=== PATIENT | male | born 1970 | race Caucasian/White ===

== ENCOUNTER 2020-07-25 07:29 | Outpatient (RCR) | payer BC, SELFPAY ==
--- NOTE | 2020-07-25 15:31 | MHC.OT.DC ---
[address] [phone] F: [phone] Occupational Therapy Discharge Note Provider: Beatrice Mcgee NP Diagnosis: Left Cubital Tunnel Syndrome Date of Surgery: Date of Evaluation: 07/11/20 Date of Discharge: 07/25/20 Treatments to Date: 3 Cancellations to Date: 1 No Shows to Date: 0 Discharge Status: Independent with HEP Patient Elected to Stop Discharge Summary: Cl presents to OT w/ left D4-D5 numbness and tingling, likely due to ulnar nerve compression at cubital tunnel. He has been educated on joint protection and activity modification. He has good follow through w/ home exercise program and ulnar nerve glides. He continues to have sensory deficits, but will be able to continue home program, limited with office visits due to high copay and location from home and work. He would benefit from [employer] Cubital Comfort Brace, insurance may cover with a provider order, thank you. Please Sign and return to therapist, thank you for your referral.
== END 2020-08-04 10:30 | disposition other institution (70) ==
LOC: HO.OT 07:29
PROVIDERS: PCP Hospitalist; Visit Provider Hospitalist
DX: G56.22 Lesion of ulnar nerve, left upper limb (principal)
CPT/HCPCS: 97035; 97110

== ENCOUNTER 2020-09-05 09:22 | Outpatient (REF) | payer BC, SELFPAY | END 2020-09-05 09:23 | disposition home or self-care (01) | LOC: HO.WFDLDS 09:22 | PROVIDERS: Visit Provider Internal Medicine | DX: Z20.828 Contact with and (suspected) exposure to other viral communicable diseases (principal) | CPT/HCPCS: C9803; U0003 ==

== ENCOUNTER → 2020-09-19 08:54 | Outpatient (BNVA) | payer BC, SELFPAY | PROVIDERS: Visit Provider Physician Assistant | DX: Z76.89 Persons encountering health services in other specified circumstances (principal) ==

== ENCOUNTER 2020-11-16 07:26 | Day surgery (SDC) | payer BC, SELFPAY ==
[2020-11-10 14:28] VITALS: BMI 32.1
--- NOTE | 2020-11-15 09:16 | P.CONAN_ITS ---
Documented by User: Iman He 11/15/20 09:17 HPI - Anesthesia Eval Consult details Narrative: 50yo M for Colonoscopy Uncontrolled htn. PCP recently adjusted meds. [facility] Past Medical History Medical History (Updated 11/16/20 @ 08:35 by Evette Ornelas) Allergic rhinitis HTN (hypertension) Family History Family History Father No problems noted. Mother No problems noted. Other Adopted Surgical History Surgical History History of skin graft Social History Social History Household Members: Spouse and Children Are you a primary career technical counselor to a significant other at home: No Do you presently have visiting nurse or other home services: No Alcohol intake: current Smoking Status: Current every day smoker Packs Per Day: 0.75 Cigarettes Per Day: 15.0 Years Smoked: 35 Smoked in Last 30 Days: Yes Patient Interested in Nicotine Replacement: No Patient Given Instructions on How to Stop Smoking: Yes Date Education Initiated: 11/10/20 Use of substances other than those prescribed or required for medical reasons: No Have you been hit, kicked, punched, or otherwise hurt by someone within the past year? If so, by whom?: No Advance Directives: Yes Advance Directives Information Provided: No Advance Directives on File: Yes Advance Directives Date on File: 07/25/20 Recently lost weight without trying: No Current occupational status: employed Meds Allergies Allergy/AdvReac Type Severity Reaction Status Date / Time Seasonal allergies Allergy Unknown sneezing, Uncoded 11/10/20 14:16 watery eyes Exam Exam Date and Time: November 15, 2020 0916 Height,Weight and Vital Signs: Height 5 ft 7 in Weight 92.986 kg Assessment and Plan Assessment Anesthesia Assessment: Chart Reviewed Documented by User: Evette Ornelas 11/16/20 08:36 [facility] Past Medical History Medical History (Updated 11/16/20 @ 08:35 by Evette Ornelas) Allergic rhinitis HTN (hypertension) Family History Family History Father No problems noted. Mother No problems noted. Other Adopted Surgical History Surgical History History of skin graft Social History Social History Household Members: Spouse and Children Are you a primary career technical counselor to a significant other at home: No Do you presently have visiting nurse or other home services: No Alcohol intake: current Smoking Status: Current every day smoker Packs Per Day: 0.75 Cigarettes Per Day: 15.0 Years Smoked: 35 Smoked in Last 30 Days: Yes Patient Interested in Nicotine Replacement: No Patient Given Instructions on How to Stop Smoking: Yes Date Education Initiated: 11/10/20 Use of substances other than those prescribed or required for medical reasons: No Have you been hit, kicked, punched, or otherwise hurt by someone within the past year? If so, by whom?: No Advance Directives: Yes Advance Directives Information Provided: No Advance Directives on File: Yes Advance Directives Date on File: 07/25/20 Recently lost weight without trying: No Current occupational status: employed Meds Allergies Allergy/AdvReac Type Severity Reaction Status Date / Time Seasonal allergies Allergy Unknown sneezing, Uncoded 11/10/20 14:16 watery eyes Exam Airway Mallampati Class: IV (Poor mouth opening. Pt states jaw issues) TM Dist: >3cm Neck ROM: Full Heart: RRR Lungs: CTA Assessment and Plan Assessment Anesthesia Assessment: Anesthesia Plan Discussed and Chart Reviewed Final Anesthetic Review NPO: Yes ASA Class: II Final Preanesthetic Review: Meds/Allgs Chart Reviewed, Consent Obtained/Reviewed and Anes Risks/Benef Reviewed Patient Risk: Intermediate Procedure Risk: Low Anesthetic Plan Anesthetic Plan: MAC: Disposition: Standard PACU
[2020-11-16 08:12] VITALS: BP 190/107; PULSE 98; RESP 18; TEMP 36.5; O2SAT 99
--- NOTE | 2020-11-16 08:24 | MHC.SHP ---
Pre-Procedural Eval Section B Chief Complaint: Screening Relevant Family History (Specify if Yes): No Relevant Social History: Tobacco Use Present Medications: see Short Stay Collaborative assessment Medical History: Significant History (HTN) History of Previous Operations: Relevant previous surgery/procedure and date(s) (History of skin graft) Allergies: Allergies Allergy/AdvReac Type Severity Reaction Status Date / Time Seasonal allergies Allergy Unknown sneezing, Uncoded 11/10/20 14:16 watery eyes Review of Systems Sugical H&P ROS: Negative: Constitution, Cardiovascular, Respiratory, Neurological, Psychiatric, Hem-Onc, Allergic/Immunologic, Gastrointestinal, Genitourinary, Musculoskeletal, Integumentary, Endocrine and Eyes/Ears/Nose/Throat Exam Surgical H&P Exam: Normal: HEENT, Normal: Heart, Normal: Lungs, Normal: Extremities, Normal: Abdomen, Normal: Skin and Normal: Neurological Plan Diagnosis/Plan: Unchanged I have reviewed the history and physical and performed a pertinent physical examination on my patient. No changes have occurred unless specified.
--- NOTE | 2020-11-16 08:24 | PM.OP ---
Brief Operative Note Date of Service: 11/16/20 Pre-op diagnosis: colon screening Post-op diagnosis: same Procedure: see op note Surgeon: Bishnu Aponte MD Anesthesia: MAC Estimated blood loss (mL): 0 Condition: stable Disposition: PACU
--- NOTE | 2020-11-16 08:25 | P.OP_ITS ---
Operative Note Operative Note Date of Service: 11/16/20 Narrative: Operative Information Procedure Description: Colonoscopy COLONOSCOPY Instrument: Olympus variable stiffness pediatric scope 190L Colonoscopy Monitoring: Vital signs and clinical assessment, continuous EKG monitoring, Pulse oximetry, Carbon Dioxide monitoring and blood pressure monitoring were done throughout the procedure. Colon withdrawal time was 10 minutes. Procedure: The patient was placed in the left lateral decubitis position and pre-procedure medications were administered. After a digital rectal examination of the ano-rectum, the video colonoscope was inserted into the rectum and advanced through the colon to the cecum/TI. The colonoscope was slowly withdrawn in a retrograde panoramic fashion and the colon mucosa was carefully examined including a retroflexed view of the rectum. Findings and interventions are described below. Procedure Difficulty:EASY Findings: Terminal Ileum-normal Cecum:normal Ascending Colon: 4-5 mm sessile polyp removed with forceps Transverse Colon -normal Descending Colon:normal Sigmoid Colon: small mouthed diverticulosis of sigmoid Rectum: Retroflexion with small internal hemorrhoids, grade I Anorectum - normal Colon preparation: Conger Bowel Preparation Scale Right colon; 3 Transverse colon: 3 Left colon; 3 (0 = Unprepared colon segment with mucosa not seen due to solid stool that cannot be cleared. 1 = Portion of mucosa of the colon segment seen, but other areas of the colon segment not well seen due to staining, residual stool and/or opaque liquid. 2 = Minor amount of residual staining, small fragments of stool and/or opaque liquid, but mucosa of colon segment seen well. 3 = Entire mucosa of colon segment seen well with no residual staining, small fragments of stool or opaque liquid) Impression and Post Procedure Diagnosis: polyp internal hemorrhoids diverticular disease Plan: High fiber diet leaflet Avoid straining at stool, epsom salts and sitz bath, anusol supps or cream Repeat Colonoscopy in 5-7 years if adenoma or 10 yrs if hyperplastic polyp or earlier if clinically indicated Above findings were reviewed with the patient and relevant handouts were provided if indicated.
[2020-11-16 08:37] VITALS: BP 138/92; PULSE 93; RESP 18; O2SAT 95
[2020-11-16 09:10] VITALS: BP 103/72; PULSE 84; RESP 14; TEMP 36.1; O2SAT 98
[2020-11-16 09:25] VITALS: BP 142/92; PULSE 89; RESP 16; TEMP 36.1; O2SAT 97
== END 2020-11-16 09:36 | disposition home or self-care (01) ==
PROVIDERS: PCP Hospitalist; Visit Provider Internal Medicine Gastroenterology
PROC: 0DJD8ZZ Inspection of Lower Intestinal Tract, Via Natural or Artificial Opening Endoscopic (ICD-10-PCS; CPT 45378; principal; 2020-11-16 08:30)
DX: Z12.11 Encounter for screening for malignant neoplasm of colon (principal); D12.2 Benign neoplasm of ascending colon; K57.30 Diverticulosis of large intestine without perforation or abscess without bleeding; K64.0 First degree hemorrhoids; I10 Essential (primary) hypertension; J30.9 Allergic rhinitis, unspecified; F17.210 Nicotine dependence, cigarettes, uncomplicated; Z79.899 Other long term (current) drug therapy
CPT/HCPCS: 45380; 88305; J2250

== ENCOUNTER → 2020-12-07 10:33 | Outpatient (BNVA) | payer BC, SELFPAY | PROVIDERS: PCP Hospitalist; Visit Provider Physician Assistant ==

== ENCOUNTER 2021-03-28 10:23 | Outpatient (REF) | payer BC, SELFPAY ==
[2021-03-28 11:34] LABS: MANUAL DIFF FLAG NO
[2021-03-28 12:00] LABS: Basophils Absolute Auto 0.1 X10*3/uL (0.0-0.2); Basophils Percent Auto 1.1 % (0-2); Eosinophils Absolute Auto 0.1 X10*3/uL (0.0-0.4); Eosinophils Percent Auto 1.3 % (0-4); Hematocrit 49.8 % (42-52); Hemoglobin 17.5 g/dl (14.0-18.0); Imm Gran Abs Auto 0.03 X10*3/uL (0.00-0.03); Imm Gran Pct Auto 0.4 % (0.0-0.4); Lymphocytes Absolute Auto 2.4 X10*3/uL (1.2-4.9); Lymphocytes Percent Auto 28.1 % (20-40); Mean Corpuscular HGB Conc 35.1 g/dl (31.0-36.0); Mean Corpuscular Hemoglobin 35.1 pg (27.0-33.0); Mean Corpuscular Volume 99.8 fL (80-98); Mean Platelet Volume 9.1 fL (9.4-12.4); Monocytes Absolute Auto 0.9 X10*3/uL (0.1-1.2); Monocytes Percent Auto 10.9 % (2-11); Neutrophils Percent Auto 58.2 % (45-73); Platelet Count 230 X10*3/uL (160-400); Red Blood Count 4.99 X10*6/uL (4.60-5.80); White Blood Count 8.6 X10*3/uL (4.8-10.8)
[2021-03-28 12:27] LABS: TSH reflex Free T4 1.03 uIU/mL (0.32-4.0)
[2021-03-28 12:44] LABS: Carbon Dioxide 26 mmol/L (22-29); Chloride 102 mmol/L (96-108); Potassium 5.1 mmol/L (3.3-5.1); Sodium 137 mmol/L (135-145)
[2021-03-28 12:45] LABS: Anion Gap 14 (12-20); Blood Urea Nitrogen 10 mg/dL (9-16); Calcium 9.5 mg/dL (8.4-10.2); Estimated Glomerular Filt Rate > 60; Glucose Random 112 mg/dL (60-115)
[2021-03-28 13:11] LABS: Erythrocyte Sedimentation Rate 10 MM/HR (0-15)
[2021-03-30 18:02] LABS: CRP High Sensitivity 7.1 mg/L
== END 2021-03-28 10:24 | disposition home or self-care (01) ==
LOC: HO.WFDLDS 10:23
PROVIDERS: Visit Provider Family Medicine
DX: Z00.00 Encounter for general adult medical examination without abnormal findings (principal); M25.50 Pain in unspecified joint
CPT/HCPCS: 36415; 80048; 84443; 85025; 85652; 86141

== ENCOUNTER 2021-04-18 07:12 | Outpatient (REF) | payer BC, SELFPAY ==
[2021-04-18 11:36] LABS: MANUAL DIFF FLAG NO
[2021-04-18 11:59] LABS: Basophils Absolute Auto 0.1 X10*3/uL (0.0-0.2); Basophils Percent Auto 1.1 % (0-2); Eosinophils Absolute Auto 0.1 X10*3/uL (0.0-0.4); Eosinophils Percent Auto 1.8 % (0-4); Hematocrit 49.5 % (42-52); Hemoglobin 17.4 g/dl (14.0-18.0); Imm Gran Abs Auto 0.02 X10*3/uL (0.00-0.03); Imm Gran Pct Auto 0.3 % (0.0-0.4); Lymphocytes Absolute Auto 2.2 X10*3/uL (1.2-4.9); Lymphocytes Percent Auto 32.9 % (20-40); Mean Corpuscular HGB Conc 35.2 g/dl (31.0-36.0); Mean Corpuscular Hemoglobin 34.9 pg (27.0-33.0); Mean Corpuscular Volume 99.4 fL (80-98); Mean Platelet Volume 9.6 fL (9.4-12.4); Monocytes Percent Auto 14.7 % (2-11); Neutrophils Absolute Auto 3.3 X10*3/uL (2.0-8.3); Neutrophils Percent Auto 49.2 % (45-73); Platelet Count 224 X10*3/uL (160-400); Red Blood Count 4.98 X10*6/uL (4.60-5.80); Red Cell Distribution Width 12.9 % (11.0-16.0); White Blood Count 6.6 X10*3/uL (4.8-10.8)
[2021-04-18 12:46] LABS: TSH reflex Free T4 1.01 uIU/mL (0.32-4.0)
[2021-04-18 13:59] LABS: Erythrocyte Sedimentation Rate 10 MM/HR (0-15)
[2021-04-19 06:21] LABS: Lyme Abs Screen <0.90 index
[2021-04-19 08:27] LABS: HBS Num1 0.98 mIU/mL (0-7.99); HBc Num1 0.08 S/CO (0.00-0.79); HBsAGNum1 0.21 S/CO (0.00-0.99); Hepatitis B Core Antibody Nonreactive (Nonreactive); Hepatitis B Surface Antigen Negative (Negative); ~Hepatitis B Surface Antibody NONREACTIVE (Nonreactive)
[2021-04-19 08:42] LABS: ~HepC Num1 0.07 S/CO (0.00-0.79); ~Hepatitis C Antibody Nonreactive (Nonreactive)
[2021-04-19 23:02] LABS: CRP High Sensitivity 5.7 mg/L
[2021-04-20 11:47] LABS: HIV AB/AG Nonreactive (Nonreactive); HIV Num 1 0.06 S/CO (0.00-0.99)
== END 2021-04-18 07:13 | disposition home or self-care (01) ==
LOC: HO.WFDLDS 07:12
PROVIDERS: Visit Provider Family Medicine
DX: Z00.00 Encounter for general adult medical examination without abnormal findings (principal); Z11.4 Encounter for screening for human immunodeficiency virus [HIV]; Z11.59 Encounter for screening for other viral diseases; M25.50 Pain in unspecified joint
CPT/HCPCS: 36415; 84443; 85025; 85652; 86141; 86617; 86618; 86704; 86706; 86803; 87340; 87389

== ENCOUNTER → 2021-06-21 10:59 | Outpatient (BNVA) | payer BC, SELFPAY | PROVIDERS: PCP Family Medicine; Referring Provider Family Medicine; Visit Provider Internal Medicine ==

== ENCOUNTER 2025-01-05 09:54 | Outpatient (AMB) | payer BC, SELFPAY ==
--- NOTE | 2025-01-05 10:07 | A.OFFPC_ITS ---
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 Blood pressure today elevated at 160/90, 112p. Hx of CAD. He is on lisinopril 20mg, carvedilol 3.125mg b.i.d. Reports L hand pain, knee pain, neck pain. [facility] Medical History Allergic rhinitis Essential hypertension HTN (hypertension) Surgical History History of skin graft Family History Father No problems noted. Mother No problems noted. 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 2. Feeling down, depressed, or hopeless: not at all 3. Trouble falling or staying asleep, or sleeping too much: more than half the days 4. Feeling tired or having little energy: more than half the days 5. Poor appetite or overeating: not at all 6. Feeling bad about yourself - or that you are a failure or have let yourself or your family down: not at all 7. Trouble concentrating on things, such as reading the newspaper or watching television: not at all 8. Moving or speaking so slowly that other people could have noticed. Or the opposite - being so fidgety or restless that you have been moving around a lot more than usual: more than half the days 9. Thoughts that you would be better off or of hurting yourself in some way: not at all Source: Developed by Drs. Cedric Gray, Juana Najera, Louis Agarwal and colleagues, with an educational brittany from [employer] Thrive Questionnaire I am a: Patient What is your living situation today?: I have a steady place to live Within the past 12 months, did the food you bought not last and you didn't have the money to get more?: I choose not to answer this question Within the past 12 months, did you worry whether your food would run out before you got money to buy more?: Never true Do you have trouble paying for medicines?: No Do you have trouble getting transportation to medical appointments?: No Do you have trouble paying your heating and electricity bill?: No Do you have trouble taking care of your child, family member or friend?: No Do you have trouble with day-to-day activities such as bathing, preparing meals, shopping, managing finances, etc.?: Yes Are you currently unemployed and looking for a job?: No Are you interested in more education?: No Please select the resources that you would like help with: None Currently or been in a relationship where the following occur: No concerns reported THRIVE Score: 0 AUDIT C Alcohol Use Questionnaire (AUDIT-C) 1. How often do you have a drink containing alcohol?: 4 or more times a week 2. How many drinks containing alcohol do you have on a typical day when you are drinking?: 1 or 2 3. How often do you have six or more drinks on one occasion?: Never Total Score: 4 ROBERT-7 AMB Questionnaire ROBERT-7 Feeling nervous, anxious, or on edge: 0 = Not at all Not being able to stop or control worryin = Not at all Worrying too much about different things: 0 = Not at all Trouble relaxin = More than half the days Being so restless that it is hard to sit still: 0 = Not at all Becoming easily annoyed or irritable: 0 = Not at all Feeling afraid as if something awful might happen: 0 = Not at all Total ROBERT-7 score (0-4 normal; 5-9 mild; 10-14 moderate; 15-21 severe): 2 Source: Developed by Drs. Cedric Gray, Juana Najera, Louis Agarwal and colleagues, with an educational brittany from [employer] Review of Systems Const Denies chills, Denies fatigue, Denies fever(s), Denies headache(s) and Denies weakness ENT Denies dizziness, Denies headache(s) and Reports neck pain Card Denies dyspnea Resp Denies cough, Denies dyspnea, Denies wheezing and Denies other (shortness of breath) Musc Details: L hand pain Reports neck pain, Denies numbness and Denies tingling Neuro Denies dizziness, Denies headache(s), Denies numbness, Denies tingling and Denies weakness Psych Denies anxiety and Denies depression Endo Denies fatigue Aller/Immun Denies wheezing Physical exam (Primary Care) Vital Signs: Last Vital Signs Temp 97.5 F 01/05/25 10:09 Pulse 112 H 01/05/25 10:09 Resp 16 01/05/25 10:09 BP 160/90 H 01/05/25 10:09 Pulse Ox 98 01/05/25 10:09 Oxygen Delivery Method Room Air 01/05/25 10:09 BMI result Body Mass Index 33.7 Currently or been in a relationship where the following occur: No concerns reported Const General: well developed; No acute distress Nutritional Appearance: well nourished Orientation/consciousness: patient oriented x3 HENMT Head: Yes normocephalic and Yes atraumatic Eyes General: appearance normal, both eyes and all related structures Pupils: Equal, round and reactive pupils present EOM: EOMs intact bilaterally Resp Effort & Inspection: normal respiratory effort Neuro General: patient oriented x3 and gait normal Cranial nerves: Yes Equal, round and reactive pupils present Psych Affect: normal affect Coding Level of Care Code Est Pt Level 4 (19522) Diagnoses Essential hypertension I10 CAD (coronary artery disease) I25.10 Polyarthralgia M25.50 Assessment & Plan Assessment & Plan (1) Essential hypertension: Code(s): I10 - Essential (primary) hypertension Category: Medical Plan: Blood?pressure?is?too?high.??Goal?is?less?than?130/80?for?patient?with?coronary? artery?disease. Increasing?carvedilol?to?6.25?mg?b.i.d. Continuing?lisinopril Will?follow-up?again?in?1?month (2) CAD (coronary artery disease): Code(s): I25.10 - Atherosclerotic heart disease of [place] coronary artery without angina pectoris Category: Medical Plan: History?of?coronary?artery?disease.??He?is?not?currently?on?a?statin?medication. Will?send?script?for?atorvastatin?40?mg?daily. He?is?getting?his?lipids?drawn?this?Saturday.??He?will?hold?off?on?atorvastatin?un til?gets?his?lipids?drawn Patient?declines?EKG?today?but?will?get?this?done?at?his?next?visit (3) Polyarthralgia: Code(s): M25.50 - Pain in unspecified joint Category: Medical Plan: Bilateral?hand?pain,?left?worse?than?right?and?bilateral?knee?pain.? Will?refer?him?to?Rheumatology He?can?continue?meloxicam?for?now.??Hydrate?well Orders: Orders Lipid Panel Today Z00.00 - Encounter for general adult medical examination without abnormal findings TSH reflex Free T4 Today Z00.00 - Encounter for general adult medical exam ination without abnormal findings Comprehensive [place]. Panel Fast Today Z00.00 - Encounter for general adult medical examination without abnormal findings Complete Blood Count Auto Diff Today Z00.00 - Encounter for general adult medical examination without abnormal findings Prostate Specific Antigen Scr Today Z12.5 - Encounter for screening for malignant neoplasm of prostate Microalbumin, Random (w Creat) Today I10 - Essential (primary) hypertension UA and rflx microscopic Today Z00.00 - Encounter for general adult medical examination without abnormal findings Medications: New atorvastatin 40 mg PO BEDTIME 90 days 90 tabs 3RF Changed From carvedilol LAST REFILL. CALL Dr. Garcia at [phone] to schedule an appt so we can continue refills. 3.125 mg PO BID 30 days 60 tabs 2RF I10 - Essential (primary) hypertension To carvedilol LAST REFILL. CALL Dr. Garcia at [phone] to schedule an appt so we can continue refills. 6.25 mg PO BID 30 days 60 tabs 2RF I10 - Essential (primary) hypertension Refilled lisinopril 20 mg PO DAILY 30 tabs 5RF I10 - Essential (primary) hypertension meloxicam 15 mg PO DAILY 30 days 30 tabs 1RF M25.50 - Pain in unspecified joint
[2025-01-05 10:09] VITALS: BP 160/90; PULSE 112; RESP 16; TEMP 36.4; O2SAT 98; BMI 33.7
[2025-01-05 10:57] VITALS: BP 160/96
== END 2025-01-05 10:57 | disposition home or self-care (01) ==
LOC: HO.HMCFM 09:55
PROVIDERS: PCP Family Medicine; Visit Provider Family Medicine
DX: I10 Essential (primary) hypertension (principal); I25.10 Atherosclerotic heart disease of native coronary artery without angina pectoris; M25.50 Pain in unspecified joint

== ENCOUNTER → 2025-01-05 09:54 | Outpatient (BNVA) | payer BC, SELFPAY | PROVIDERS: PCP Family Medicine; Visit Provider Family Medicine ==

== ENCOUNTER 2025-01-07 11:38 | Outpatient (REF) | payer BC, SELFPAY ==
[2025-01-07 14:17] LABS: MANUAL DIFF FLAG NO
[2025-01-07 14:41] LABS: Basophils Absolute Auto 0.1 X10*3/uL (0.0-0.2); Basophils Percent Auto 1.3 % (0-2); Eosinophils Absolute Auto 0.1 X10*3/uL (0.0-0.4); Eosinophils Percent Auto 0.7 % (0-4); Hematocrit 50.5 % (42.0-52.0); Hemoglobin 18.8 g/dl (14.0-18.0); Imm Gran Abs Auto 0.04 X10*3/uL (0.00-0.03); Imm Gran Pct Auto 0.4 % (0.0-0.4); Lymphocytes Absolute Auto 2.6 X10*3/uL (1.2-4.9); Lymphocytes Percent Auto 27.5 % (20-40); Mean Corpuscular HGB Conc 37.2 g/dl (31.0-36.0); Mean Corpuscular Hemoglobin 37.7 pg (27.0-33.0); Mean Corpuscular Volume 101.2 fL (80.0-98.0); Mean Platelet Volume 9.9 fL (9.4-12.4); Monocytes Absolute Auto 0.9 X10*3/uL (0.1-1.2); Monocytes Percent Auto 9.8 % (2-11); Neutrophils Absolute Auto 5.7 x10*3/uL (2.0-8.3); Neutrophils Percent Auto 60.3 % (45-73); Platelet Count 203 X10*3/uL (160-400); Red Blood Count 4.99 X10*6/uL (4.60-5.80); Red Cell Distribution Width 13.7 % (11.0-16.0); White Blood Count 9.5 X10*3/uL (4.8-10.8)
[2025-01-07 15:22] LABS: Alanine Aminotransferase 81 U/L (0-40); Alkaline Phosphatase 76 U/L (39-117); Anion Gap 12 (12-20); Aspartate Amino Transferase 95 U/L (5-37); Bilirubin Total 1.4 mg/dL (0.0-1.0); Blood Urea Nitrogen 11 mg/dL (9-16); Calcium 9.5 mg/dL (8.4-10.2); Carbon Dioxide 27 mmol/L (22-29); Chloride 103 mmol/L (96-108); Cholesterol 215 mg/dL (<200); Estimated Glomerular Filt Rate > 60; Glucose Fasting 160 mg/dL (60-99); HDL Cholesterol 58 mg/dL (>40); LDL Cholesterol Calculated 137 mg/dL (<100); Potassium 4.1 mmol/L (3.3-5.1); Sodium 138 mmol/L (135-145); Total Protein 8.1 g/dL (6.5-8.0); Triglycerides 104 mg/dL (<150)
[2025-01-07 15:30] LABS: Prostate Specific Antigen Scr 1.11 ng/mL (<0.05-4.0)
[2025-01-07 15:40] LABS: TSH reflex Free T4 1.36 uIU/mL (0.32-4.0)
== END 2025-01-07 11:39 | disposition home or self-care (01) ==
LOC: HO.WFDLDS 11:38
PROVIDERS: Visit Provider Family Medicine
DX: Z00.00 Encounter for general adult medical examination without abnormal findings (principal); Z12.5 Encounter for screening for malignant neoplasm of prostate; I10 Essential (primary) hypertension
CPT/HCPCS: 36415; 80053; 80061; 84153; 84443; 85025

== ENCOUNTER 2025-02-16 11:32 | Outpatient (AMB) | payer BC, SELFPAY ==
--- NOTE | 2025-02-16 11:51 | MHC.PC.OV ---
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: No Information Interpreted: clinical only Associate Product Manager: Offered and Declined Allergies No Known Allergies Allergy (Verified 02/16/25 11:55) Medication List - Last Reconciled 02/16/25 by Vikas Reagan MD atorvastatin 40 mg PO BEDTIME 90 days carvedilol 6.25 mg PO BID 30 days lisinopril 20 mg PO DAILY meloxicam 15 mg PO DAILY 30 days Tobacco use date assessed: 02/16/25 Dental Screening Dental Screen Date: 02/16/25 Did you have a dental visit in the last 12 months?: Yes Did you have a dental problem in the last 6 months where you did not have access to dental care?: No Was dental information given to patient?: Yes HPI f/u HTN, chronic conditions HPI Details 54 y/o male presents to f/u hypertension, polyarthralgia. Blood pressure today 132/68, 87p. Increased carvedilol and continued lisinopril. Hx of CAD and he had not been on a statin. Had sent a script for artovastatin. Labs drawn 01/07/25. Reviewed labs with pt. TC 215. LDL 137. HDL 58. Elevated liver enzymes - AST 95, ALT 81. HPI Comments History of Present Illness Details Documentation assistance for Vikas Reagan MD, was provided by Reji Gaitan,? Network Control Technician on 02/16/2025 at 12:39 PM EST. I, Dr. Reagan, have read, observed, and verified documentation. ? PFSH Medical History Allergic rhinitis Essential hypertension HTN (hypertension) Surgical History History of skin graft Family History Father No problems noted. Mother No problems noted. Other Adopted Social History Household Members: Spouse and Children Housing: House Are you a primary small animal caretaker to a significant other at home: No Do you presently have visiting nurse or other home services: No Alcohol intake: current Alcohol intake frequency: 0-2 drinks per day Alcohol type: beer Patient Tobacco Use Status: Current everyday Tobacco user Tobacco use type: Cigarette Cigarette Packs Per Day: 0.75 Cigarettes Per Day: 10 Years Smoked: 35 e-Cigarette/Vaping Use: Never Used Advance Directives Date on File: 07/25/20 service: No Current occupational status: employed Current occupation: [employer] Current occupational exposures/hazards: Yes Cognitive needs: Yes Questionnaire PHQ-9 Over the last 2 weeks, how often have you been bothered by any of the following problems? 1. Little interest or pleasure in doing things: not at all Source: Developed by Drs. Cedric Gray, Juana Najera, Louis Agarwal and colleagues, with an educational brittany from [employer]. Thrive Questionnaire Date Thrive assessed: 01/05/25 I am a: Patient What is your living situation today?: I have a steady place to live Within the past 12 months, did the food you bought not last and you didn't have the money to get more?: I choose not to answer this question Within the past 12 months, did you worry whether your food would run out before you got money to buy more?: Never true Do you have trouble paying for medicines?: No Do you have trouble getting transportation to medical appointments?: No Do you have trouble paying your heating and electricity bill?: No Do you have trouble taking care of your child, family member or friend?: No Do you have trouble with day-to-day activities such as bathing, preparing meals, shopping, managing finances, etc.?: Yes Are you currently unemployed and looking for a job?: No Are you interested in more education?: No Please select the resources that you would like help with: None Currently or been in a relationship where the following occur: No concerns reported THRIVE Score: 0 Review of Systems Const Denies chills, Denies fatigue, Denies fever(s), Denies headache(s) and Denies weakness ENT Denies dizziness and Denies headache(s) Card Denies dyspnea Resp Denies cough, Denies dyspnea, Denies wheezing and Denies other (shortness of breath) Musc Denies numbness and Denies tingling Neuro Denies dizziness, Denies headache(s), Denies numbness, Denies tingling and Denies weakness Psych Denies anxiety and Denies depression Endo Denies fatigue Aller/Immun Denies wheezing Physical exam (Primary Care) Vital Signs: Last Vital Signs Temp 97.5 F 02/16/25 11:52 Pulse 87 02/16/25 11:52 Resp 16 02/16/25 11:52 BP 132/68 02/16/25 11:52 Pulse Ox 98 02/16/25 11:52 Oxygen Delivery Method Room Air 02/16/25 11:52 BMI result Body Mass Index 33.3 Tobacco/Smoking Status: Tobacco use Status Tobacco use date assessed 02/16/25 02/16/25 12:00 Patient Tobacco Use Status Current everyday Tobacco 02/16/25 12:00 Tobacco use type Cigarette 02/16/25 12:00 e-Cigarette/Vaping Use Never Used 02/16/25 12:00 Thrive Assessment: Date of Thrive Assessment Date Thrive assessed 01/05/25 02/16/25 11:53 Currently or been in a relationship where the following occur: No concerns reported Const General: well developed; No acute distress Nutritional Appearance: well nourished Orientation/consciousness: patient oriented x3 HENMT Head: Yes normocephalic and Yes atraumatic Eyes General: appearance normal, both eyes and all related structures Pupils: Equal, round and reactive pupils present EOM: EOMs intact bilaterally Resp Effort & Inspection: normal respiratory effort Neuro General: patient oriented x3 and gait normal Cranial nerves: Yes Equal, round and reactive pupils present Psych Affect: normal affect Coding Level of Care Code Est Pt Level 4 (88637) Diagnoses Essential hypertension I10 CAD (coronary artery disease) I25.10 Hyperlipidemia E78.5 Elevated liver enzymes R74.8 Assessment & Plan Assessment & Plan (1) Essential hypertension: Code(s): I10 - Essential (primary) hypertension Category: Medical Plan: Blood?pressure?is?improved?since?increasing?carvedilol. Blood?pressure?132/68?is nearly?at?goal?of?less?than?130/80 Continue?current?medication Work?at?lifestyle?changes (2) CAD (coronary artery disease): Code(s): I25.10 - Atherosclerotic heart disease of [place] coronary artery without angina pectoris Category: Medical Plan: History?of?coronary?artery?disease EKG?shows?normal?sinus?rhythm,?normal?axis,?left?ventricular?hypertrophy,?T-wave?inversions?V3?-?V6. May?have?T-wave?inversion?due?to?longstanding?pressure?overload, vs underlying?ischemia. He?is?asymptomatic. Will?check?echocardiogram (3) Hyperlipidemia: Code(s): E78.5 - Hyperlipidemia, unspecified Category: Medical Plan: Now?on?atorvastatin. LDL?goal?is?less?than?70 (4) Elevated liver enzymes: Code(s): R74.8 - Abnormal levels of other serum enzymes Category: Medical Plan: Elevated Will recheck at next lab draw Orders: Orders CA echo transthoracic complete Today I10 - Essential (primary) hypertension, I25.10 - Atherosclerotic heart disease of [place] coronary artery without angina pectoris, I51.7 - Cardiomegaly
[2025-02-16 11:52] VITALS: BP 132/68; PULSE 87; RESP 16; TEMP 36.4; O2SAT 98; BMI 33.3
== END 2025-02-16 12:59 | disposition home or self-care (01) ==
LOC: HO.HMCFM 11:33
PROVIDERS: PCP Family Medicine; Visit Provider Family Medicine
DX: I10 Essential (primary) hypertension (principal); I25.10 Atherosclerotic heart disease of native coronary artery without angina pectoris; E78.5 Hyperlipidemia, unspecified; R74.8 Abnormal levels of other serum enzymes

== ENCOUNTER → 2025-02-16 11:32 | Outpatient (BNVA) | payer BC, SELFPAY | PROVIDERS: PCP Family Medicine; Visit Provider Family Medicine ==

== ENCOUNTER → 2025-06-16 13:55 | Outpatient (REF) | payer BC, SELFPAY ==
--- NOTE | 2025-06-16 13:58 | CA_ITS ---
Transthoracic Echocardiogram Patient (Last, First, Middle): Cl Alfaro, Gender: M Date of : 1970 Age: 54 Procedure Date: 06/16/2025 Procedure Type: Transthoracic Echocardiogram Location: OP Height: 170.18 cm Weight: 96.16 kg BSA: 2.07 m2 Heart Rate: 86 bpm BP: 132 / 68 mmHg Outreach Worker: JOHN Referring MD: Vikas Reagan MD Symptoms: I25.10 - Atherosclerotic heart disease of [place] coronary artery without... Study Quality: Adequate w contrast ECG Rhythm: Sinus Conclusions: - The left ventricular systolic function is normal. The calculated ejection fraction is 70% by biplane method. - No obvious valvular pathology seen on this study. Findings Procedure Information Contrast agent, definity, is being given per protocol without apparent complications. Left Ventricle Normal left ventricular cavity size. There is mildly increased left ventricular wall thickness. The left ventricular systolic function is normal. The calculated ejection fraction is 70% by biplane method. There is no evidence of regional wall motion abnormalities. Evidence suggests grade I (mild) diastolic dysfunction. Right Ventricle Normal right ventricular cavity size and systolic function. Atria Both atria are normal in size. Aortic Valve There is a normal trileaflet aortic valve. There is no aortic valve stenosis. There is no aortic valve regurgitation. Mitral Valve The mitral valve appears normal. There is no mitral valve regurgitation. There is no mitral valve stenosis. Pulmonic Valve The pulmonic valve is likely normal. Tricuspid Valve There is trace tricuspid valve regurgitation. Tricuspid regurgitation envelope is inadequate for calculation of right ventricular systolic pressure. Great Vessels The asc aorta is normal in size. Venous The inferior vena cava is normal in size and collapses greater than 50% with inspiration. Pericardium/Pleural There is no evidence of pericardial effusion. Prior Study Comparison No prior study available for comparison. Recommendations, Care & Conclusions No obvious valvular pathology seen on this study. Measurements 2D Linear Measurements IVSd: 1.26 0.6-0.9/0.6-1.0 cm LVIDd: 3.84 3.9-5.3/4.2-5.9 cm LVIDd Index: 1.86 2.4-3.2/2.2-3.1 cm/m2 LVIDs: 2.72 2.0-3.6 cm LVPWd: 1.06 0.7-1.1 cm LV Mass: 184.21 67-162/88-224 g LV Mass Index: 88.99 43-95/49-115 g/m2 LVOT Diam: 2.00 3.0+(-)1.3 cm 2D Systolic Function EF 4C: 69.20 >55% EF 2C: 72.60 >55% EF BiP: 70.30 >55% Mitral Valve MV Pk E: 0.51 MV PK A: 0.84 MV Decel Time: 228.00 E/A: 0.60 E'Lateral: 4.03 E'Medial: 3.37 E/E' Med: 15.10 E/E' Lat: 12.70 PHT: 67.00 MVA PHT: 3.28 Decel Swift: 2.23 Aortic Valve AoV Pk Héctor: 1.54 AoV Mn Héctor: 1.06 AoV VTI: 0.27 AoV Pk Grad: 9.00 Aov Mn Grad: 5.00 SISI Cont.VTI: 2.56 LVOT LVOT Pk Héctor: 1.38 LVOT Mn Héctor: 0.89 LVOT VTI: 0.22 LVOT Pk Grad: 8.00 LVOT Mn Grad: 4.00 LVOT Diam: 2.00 LVOT Area: 3.14 Diastolic Function MV Pk E: 0.51 MV Pk A: 0.84 E/A: 0.60 E'Medial: 3.37 E/E' Med: 15.10 E' Laterial: 4.03 E/E' Lat: 12.70 Right Ventricle TAPSE (mm): 18.00 TVS' Héctor: 10.20 Tricuspid Valve RA Press: 3.00 Great Vessels Aorta Sinus of Valsalva: 3.84 2.0-3.5 cm Ao Asc: 3.80 2.1-3.4 cm Updated in Other Vendor System with Status of Final Ricky Garcia MD electronically signed on 06/17/2025 3:06:52 PM with status of Final
== END ==
LOC: HO.CARD 13:55
PROVIDERS: PCP Family Medicine; Visit Provider Family Medicine
DX: I25.10 Atherosclerotic heart disease of native coronary artery without angina pectoris (principal); I11.9 Hypertensive heart disease without heart failure
CPT/HCPCS: 93306; Q9957

== ENCOUNTER → 2025-06-16 13:58 | Outpatient (BNV) | payer BC, SELFPAY | PROVIDERS: PCP Family Medicine; Visit Provider Internal Medicine | DX: I25.10 Atherosclerotic heart disease of native coronary artery without angina pectoris (principal); I51.89 Other ill-defined heart diseases | CPT/HCPCS: 93306 ==

== ENCOUNTER 2025-09-02 13:10 | Outpatient (REF) | payer BC, SELFPAY ==
[2025-09-02 17:54] LABS: Hematocrit 46.5 % (42.0-52.0); Hemoglobin 17.0 g/dl (14.0-18.0); Imm Gran Abs Auto 0.04 X10*3/uL (0.00-0.03); Imm Gran Pct Auto 0.4 % (0.0-0.4); Lymphocytes Absolute Auto 2.5 X10*3/uL (1.2-4.9); MANUAL DIFF FLAG NO; Mean Corpuscular HGB Conc 36.6 g/dl (31.0-36.0); Mean Corpuscular Hemoglobin 38.3 pg (27.0-33.0); Mean Corpuscular Volume 104.7 fL (80.0-98.0); NRBC Abs Auto 0.000 X10*3/uL (0.0-0.012); NRBC Pct Auto 0.0 /100WBC (0.0-0.2); Platelet Count 236 X10*3/uL (160-400); Red Blood Count 4.44 X10*6/uL (4.60-5.80); White Blood Count 9.3 X10*3/uL (4.8-10.8)
[2025-09-02 18:02] LABS: Appearance Urine Turbid; Glucose Urine UA 500 mg/dL (Negative); PH 6.0 (5.0-9.0); Specific Gravity - Urine 1.025 (1.005-1.025); UMIC TRIGGER UACC YES
[2025-09-02 18:24] LABS: Microalbum/Creatinine Ratio Ur 10.2 ug/mg cr (<30)
[2025-09-02 18:30] LABS: Alanine Aminotransferase 40 U/L (0-40); Albumin Level 4.2 g/dL (3.5-5.0); Alkaline Phosphatase 73 U/L (39-117); Anion Gap 14 (12-20); Aspartate Amino Transferase 61 U/L (5-37); Blood Urea Nitrogen 12 mg/dL (9-16); Calcium 9.2 mg/dL (8.4-10.2); Carbon Dioxide 28 mmol/L (22-29); Chloride 104 mmol/L (96-108); Cholesterol 143 mg/dL (<200); Estimated Glomerular Filt Rate > 60; HDL Cholesterol 52 mg/dL (>40); Potassium 4.0 mmol/L (3.3-5.1); Sodium 142 mmol/L (135-145); Total Protein 7.3 g/dL (6.5-8.0); Triglycerides 115 mg/dL (<150)
== END 2025-09-02 13:11 | disposition home or self-care (01) ==
LOC: HO.WFDLDS 13:10
PROVIDERS: PCP Family Medicine; Visit Provider Family Medicine
DX: Z00.00 Encounter for general adult medical examination without abnormal findings (principal); Z12.5 Encounter for screening for malignant neoplasm of prostate; I25.10 Atherosclerotic heart disease of native coronary artery without angina pectoris; I10 Essential (primary) hypertension; R73.01 Impaired fasting glucose; I51.7 Cardiomegaly; E78.5 Hyperlipidemia, unspecified; F17.210 Nicotine dependence, cigarettes, uncomplicated; Z79.899 Other long term (current) drug therapy
CPT/HCPCS: 36415; 80053; 80061; 81001; 82043; 82570; 83036; 84153; 84443; 85025; 96127

== ENCOUNTER 2025-09-02 13:10 | Outpatient (AMB) | payer BC, SELFPAY ==
--- NOTE | 2025-09-02 13:16 | MHC.PC.OV ---
Vital Signs 09/02/25 13:21 09/02/25 13:33 Height 5 ft 7 in Weight 202 lb 6 oz BMI 31.7 BP 168/101 H 170/96 H Blood Pressure Location Lt brachial Rt brachial Position Sitting Respiration 16 Pulse 96 Pulse Source Pulse Oximeter Temp 97.9 F Temp Source Oral Pulse Oximetry (%) 98 Oxygen Delivery Method Room Air Intake Visit Reasons: f/u HTN, HLD - see comments Intake Note: patient here for follow up on HTN and HLD Receiving Teller Required: No Allergies Penicillins Allergy (Intermediate, Verified 09/02/25 13:20) Unknown Medication List - Last Reconciled 09/02/25 by Vikas Reagan MD atorvastatin 40 mg PO BEDTIME 90 days carvedilol 6.25 mg PO BID 30 days lisinopril 20 mg PO DAILY meloxicam 15 mg PO DAILY 30 days Tobacco use date assessed: 09/02/25 Dental Screening Dental Screen Date: 09/02/25 Did you have a dental visit in the last 12 months?: No Did you have a dental problem in the last 6 months where you did not have access to dental care?: No Was dental information given to patient?: No HPI f/u HTN, HLD - see comments HPI Details 54 y/o male presents to f/u HTN, HLD. BP today 168/101, 96p. He is on lisinopril 20mg, carvedilol 6.25mg b.i.d. Lipid panel drawn December. Last LDL 137. [facility] Medical History Allergic rhinitis Essential hypertension HTN (hypertension) Surgical History History of skin graft Family History Father No problems noted. Mother No problems noted. Other Adopted Social History Household Members: Spouse and Children Housing: House Are you a primary pharmacist critical care to a significant other at home: No Do you presently have visiting nurse or other home services: No Alcohol intake: current Alcohol intake frequency: 0-2 drinks per day Alcohol type: beer Patient Tobacco Use Status: Current everyday Tobacco user Tobacco use type: Cigarette Cigarette Packs Per Day: 0.75 Cigarettes Per Day: 10 Years Smoked: 35 e-Cigarette/Vaping Use: Never Used Advance Directives Date on File: 07/25/20 service: No Current occupational status: employed Current occupation: [employer] Current occupational exposures/hazards: Yes Cognitive needs: Yes Questionnaire PHQ-9 Over the last 2 weeks, how often have you been bothered by any of the following problems? 1. Little interest or pleasure in doing things: not at all 2. Feeling down, depressed, or hopeless: not at all 3. Trouble falling or staying asleep, or sleeping too much: nearly every day 4. Feeling tired or having little energy: not at all 5. Poor appetite or overeating: not at all 6. Feeling bad about yourself - or that you are a failure or have let yourself or your family down: not at all 7. Trouble concentrating on things, such as reading the newspaper or watching television: not at all 8. Moving or speaking so slowly that other people could have noticed. Or the opposite - being so fidgety or restless that you have been moving around a lot more than usual: not at all 9. Thoughts that you would be better off or of hurting yourself in some way: not at all Total score: 3 Depression Screening Interpretation: Negative Depression Screening Done: Yes 26454 - PHQ-9 Billing: Yes Source: Developed by Drs. Cedric Gray, Juana Najera, Louis Agarwal and colleagues, with an educational brittany from [email or web address]. Thrive Questionnaire Date Thrive assessed: 01/05/25 I am a: Patient What is your living situation today?: I have a steady place to live Within the past 12 months, did the food you bought not last and you didn't have the money to get more?: I choose not to answer this question Within the past 12 months, did you worry whether your food would run out before you got money to buy more?: Never true Do you have trouble paying for medicines?: No Do you have trouble getting transportation to medical appointments?: No Do you have trouble paying your heating and electricity bill?: No Do you have trouble taking care of your child, family member or friend?: No Do you have trouble with day-to-day activities such as bathing, preparing meals, shopping, managing finances, etc.?: Yes Are you currently unemployed and looking for a job?: No Are you interested in more education?: No Please select the resources that you would like help with: None Currently or been in a relationship where the following occur: No concerns reported THRIVE Score: 0 Review of Systems Const Denies chills, Denies fatigue, Denies fever(s), Denies headache(s) and Denies weakness ENT Denies dizziness and Denies headache(s) Card Denies dyspnea Resp Denies cough, Denies dyspnea, Denies wheezing and Denies other (shortness of breath) Musc Denies numbness and Denies tingling Neuro Denies dizziness, Denies headache(s), Denies numbness, Denies tingling and Denies weakness Psych Denies anxiety and Denies depression Endo Denies fatigue Aller/Immun Denies wheezing Physical exam (Primary Care) Vital Signs: Last Vital Signs Temp 97.9 F 09/02/25 13:21 Pulse 96 09/02/25 13:21 Resp 16 09/02/25 13:21 BP 170/96 H 09/02/25 13:33 Pulse Ox 98 09/02/25 13:21 Oxygen Delivery Method Room Air 09/02/25 13:21 BMI result Body Mass Index 31.7 Tobacco/Smoking Status: Tobacco use Status Tobacco use date assessed 09/02/25 09/02/25 13:25 Patient Tobacco Use Status Current everyday Tobacco 09/02/25 13:18 Tobacco use type Cigarette 09/02/25 13:18 e-Cigarette/Vaping Use Never Used 09/02/25 13:18 PHQ-9: PHQ-9 Score PHQ-9: Total score 3 09/02/25 13:33 Depression Screening Interpretation: Negative Thrive Assessment: Date of Thrive Assessment Date Thrive assessed 01/05/25 09/02/25 13:18 Currently or been in a relationship where the following occur: No concerns reported Const General: well developed; No acute distress Nutritional Appearance: well nourished Orientation/consciousness: patient oriented x3 HENMT Head: Yes normocephalic and Yes atraumatic Eyes General: appearance normal, both eyes and all related structures Pupils: Equal, round and reactive pupils present EOM: EOMs intact bilaterally Resp Effort & Inspection: normal respiratory effort Auscultation: clear to auscultation bilaterally Cardio Rate: regular rate Rhythm: regular rhythm Heart sounds: S1 normal heart sound present, S2 normal heart sound present, no gallops, no murmurs and no rubs Neuro General: patient oriented x3 and gait normal Cranial nerves: Yes Equal, round and reactive pupils present Psych Affect: normal affect Coding Level of Care Code Est Pt Level 4 (90439) Diagnoses Essential hypertension I10 Hypertension type: essential hypertension CAD (coronary artery disease) I25.10 Hyperlipidemia E78.5 LVH (left ventricular hypertrophy) I51.7 Additional Codes PHQ-9 - 28795 - PHQ-9 Billing: Yes ([id number]) Assessment & Plan Assessment & Plan (1) HTN (hypertension): Code(s): I10 - Essential (primary) hypertension Category: Medical Qualifiers: Hypertension type: essential hypertension Qualified Code(s): I10 - Essential (primary) hypertension Plan: Blood pressure is too high. Goal is less than 130/80 Increasing carvedilol today. 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 Seems lost to follow-up. Will make a referral back to Cardiology and patient understands. (3) Hyperlipidemia: Code(s): E78.5 - Hyperlipidemia, unspecified Category: Medical Plan: Lipids were elevated when last checked Had started him on atorvastatin which he is taking LDL cholesterol goal is less than 70 Has not had his lipids rechecked and will do so today as he is fasting. (4) LVH (left ventricular hypertrophy): Code(s): I51.7 - Cardiomegaly Category: Medical Plan: Monitoring patient's liver enzymes which have been elevated Will recheck these with his lab work today We discussed that if they are still elevated we will check an ultrasound of the liver. He notes that he has significantly decreased his drinking. Weight has decreased as well Encouraged increased hydration Orders: Orders Lipid Panel Today Z00.00 - Encounter for general adult medical examination without abnormal findings Comprehensive [place]. Panel Fast Today Z00.00 - Encounter for general adult medical examination without abnormal findings Complete Blood Count Auto Diff Today Z00.00 - Encounter for general adult medical examination without abnormal findings Prostate Specific Antigen Scr Today Z12.5 - Encounter for screening for malignant neoplasm of prostate Microalbumin, Random (w Creat) Today I10 - Essential (primary) hypertension TSH reflex Free T4 Today Z00.00 - Encounter for general adult medical examination without abnormal findings UA CC w/rflx Micro + Cult Today Z00.00 - Encounter for general adult medical examination without abnormal findings Hemoglobin A1c Today R73.01 - Impaired fasting glucose Referrals Cardiology Referral I10 - Essential (primary) hypertension, I25.10 - Atherosclerotic heart disease of [place] coronary artery without angina pectoris, I51.7 - Cardiomegaly, I51.89 - Other ill-defined heart diseases Medications: Changed From carvedilol LAST REFILL. CALL Dr. Garcia at [phone] to schedule an appt so we can continue refills. 6.25 mg PO BID 30 days 60 tabs 2RF I10 - Essential (primary) hypertension To carvedilol 12.5 mg PO BID 60 tabs 2RF 30 days I10 - Essential (primary) hypertension
[2025-09-02 13:21] VITALS: BP 168/101; PULSE 96; RESP 16; TEMP 36.6; O2SAT 98; BMI 31.7
[2025-09-02 13:33] VITALS: BP 170/96
== END 2025-09-02 13:44 | disposition home or self-care (01) ==
LOC: HO.HMCFM 13:11
PROVIDERS: PCP Family Medicine; Visit Provider Family Medicine
DX: I10 Essential (primary) hypertension (principal); I25.10 Atherosclerotic heart disease of native coronary artery without angina pectoris; E78.5 Hyperlipidemia, unspecified; I51.7 Cardiomegaly